=== PATIENT | female | born 1965 | race Caucasian/White ===

== ENCOUNTER → 2016-05-25 | Outpatient (CLI) | payer MEDICARE, OTHER ==
[2015-01-02 20:16] VITALS: BP 131/81
--- NOTE | 2016-05-25 10:38 | RAD ---
EXAM: Lumbar spine, 2 views. HISTORY: Degenerative joint disease. COMPARISON: None. FINDINGS: Frontal and lateral views of the lumbar spine are obtained. There is no significant listhesis. There is mild endplate remodeling at all levels. 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 There are a few pelvic phleboliths. IMPRESSION: 1. Mild degenerative changes involving the lumbar spine. 2. No acute osseous finding.
== END | disposition home or self-care (01) ==
LOC: RAD 09:20
PROVIDERS: ATTEND Neuromusculoskeletal Medicine, Sports Medicine
DX: M51.36 Other intervertebral disc degeneration, lumbar region (principal)
CPT/HCPCS: 72100